=== PATIENT | female | born 1950 | race Caucasian/White ===

== ENCOUNTER 2023-04-01 14:04 | Inpatient (IN) | payer MEDICARE ==
[2023-04-01] MEDS ORDERED: Dexamethasone 10 MG/ML VIAL ONE (15:20)
[2023-04-01] MEDS ORDERED: Ipratropium/Albuterol 3 ML NEB ONE ×2 (15:27→17:49)
[2023-04-01] MEDS ORDERED: Albuterol 2.5 MG (3 mL) NEB ONE ×2 (15:27→17:49)
[2023-04-01 15:36] LABS: Bilirubin Neg (Negative); Blood, Urine 50 (Negative); Glucose, Urine (Dipstick) Normal (Negative); Ketone, Urine 5 mg/dL (Negative); Leukocyte 25 (Negative); Nitrite Negative (Negative); Protein, Urine (Dipstick) 500 mg/dl (Neg-Trace); Specific Gravity, Urine 1.015 (1.005-1.030)
[2023-04-01 15:38] LABS: ALT (SGPT) 20 U/L (8-55); AST (SGOT) 22 U/L (5-34); Albumin 3.9 g/dL (3.4-4.8); Alkaline Phosphatase 109 U/L (40-110); Anion Gap 17 mmol/L (10-20); BUN (Urea Nitrogen) 27 mg/dL (9.8-20.1); Bilirubin, Total 0.5 mg/dL (0.2-1.2); Calc. Creatinine Clearance 0 mL/min (70-130); Calcium 10.1 mg/dL (7.8-10.44); Carbon Dioxide 30 mmol/L (23-31); Chloride 99 mmol/L (98-107); Estimated GFR 53; Globulin 4.2 g/dL (2.4-3.5); Glucose 130 mg/dL (83-110); Potassium 2.9 mmol/L (3.5-5.1); Protein, Total 8.1 g/dL (5.8-8.1); Sodium 143 mmol/L (136-145)
[2023-04-01 15:41] LABS: Clarity Hazy (Clear)
[2023-04-01 15:45] LABS: CAUTI Indications for Culture Pelvic or flank pain
[2023-04-01 15:46] LABS: Bacteria/HPF 2+ HPF (None Seen)
[2023-04-01 15:47] LABS: Cellular Cast 0-3 LPF (None Seen); Red Blood Cell Cast 0-3 LPF (None Seen)
[2023-04-01 15:49] LABS: Mucous/LPF 3+ LPF (<2+)
[2023-04-01 15:50] LABS: Transitional Epithelial 0-3 HPF (None Seen)
[2023-04-01 15:52] LABS: Urine Culture Reflex No No
[2023-04-01 15:58] LABS: Hematocrit 50.3 % (34.9-44.5); Hemoglobin 16.7 g/dL (12.0-15.5); Mean Corpuscular HGB CONC 33.2 g/dL (32.0-36.0); Mean Corpuscular Hemoglobin 28.2 pg (27.0-33.0); Mean Platelet Volume 11.2 fl (7.4-10.4); Platelet Count 288 10x3/uL (150-450); RBC Distribution Width 14.2 % (11.5-14.5); Red Blood Cell (RBC) Count 5.92 10x6/uL (3.90-5.03); White Blood Cell (WBC) Count 16.6 10x3/uL (3.5-10.5)
[2023-04-01 16:10] LABS: SARS-CoV-2 NAA Rapid Test Not Detected (NotDetected)
[2023-04-01 16:16] LABS: Band 34 % (5-11)
[2023-04-01 16:18] LABS: MDiff Complete? YES; Platelet Adequacy Comment Appears Adequate; RBC Morph Comment Within Normal Limits
[2023-04-01 16:20] LABS: Lymphocytes 6 % (21-51); Monocytes 10 % (0-10)
[2023-04-01 16:21] LABS: Neutrophil 50 % (42-75)
[2023-04-01] MEDS ORDERED: cefTRIAXone (ROCEPHIN) 1 GM VIAL ONE (17:39)
[2023-04-01] MEDS ORDERED: Ondansetron PF 4 MG/2 ML Vial IVP PRN (17:44)
[2023-04-01] MEDS ORDERED: Ipratropium/Albuterol 3 ML NEB NEB PRN (17:44)
[2023-04-01] MEDS ORDERED: Loperamide HCl 2 MG CAP PO PRN (18:30)
[2023-04-01] MEDS ORDERED: Potassium Chloride 20 MEQ TAB PO SCH (23:00)
[2023-04-01] MEDS ORDERED: Azithromycin 500 MG in Sodium Chloride 0.9% 250 ML 250 ML IVPB SCH (23:00)
[2023-04-02] MEDS ORDERED: traZODone HCl 50 MG TAB PO SCH (00:45)
[2023-04-02] MEDS: NS 0.9% w/ 20 MEQ KCL 1,000 ML/1,000 ML BAG IV SCH ×2 (00:46→08:42)
[2023-04-02 04:18] LABS: Anion Gap 18 mmol/L (10-20); BUN (Urea Nitrogen) 32 mg/dL (9.8-20.1); Calc. Creatinine Clearance 57 mL/min (70-130); Calcium 9.9 mg/dL (7.8-10.44); Carbon Dioxide 28 mmol/L (23-31); Chloride 101 mmol/L (98-107); Estimated GFR 55; Glucose 139 mg/dL (83-110); Potassium 3.6 mmol/L (3.5-5.1); Sodium 143 mmol/L (136-145)
[2023-04-02 04:53] LABS: Hematocrit 47.8 % (34.9-44.5); Hemoglobin 15.6 g/dL (12.0-15.5); Mean Corpuscular HGB CONC 32.6 g/dL (32.0-36.0); Mean Corpuscular Hemoglobin 27.9 pg (27.0-33.0); Mean Corpuscular Volume 85.5 fl (81.6-98.3); Mean Platelet Volume 11.2 fl (7.4-10.4); Platelet Count 298 10x3/uL (150-450); RBC Distribution Width 14.6 % (11.5-14.5); Red Blood Cell (RBC) Count 5.59 10x6/uL (3.90-5.03); White Blood Cell (WBC) Count 18.2 10x3/uL (3.5-10.5)
[2023-04-02 04:58] LABS: Band 30 % (5-11); Lymphocytes 2 % (21-51); Metamyelocyte 6 % (0-0); Monocytes 8 % (0-10); Reactive Lymphocytes 1 % (0-10)
[2023-04-02 04:59] LABS: Neutrophil 53 % (42-75)
[2023-04-02 05:02] LABS: Platelet Adequacy Comment Appears Adequate
[2023-04-02 05:03] LABS: MDiff Complete? YES
[2023-04-02] MEDS: Acetaminophen 325 MG TAB PO PRN (05:36)
[2023-04-02] MEDS: Guaifenesin DM 100-10/5 ML UDCUP PO PRN ×2 (05:36→20:33)
[2023-04-02] MEDS ORDERED: Nitroglycerin 2% Ointment 1 INCH/1 GM Packet TOP SCH (06:00)
[2023-04-02] MEDS: Potassium Chloride 20 MEQ TAB PO SCH (08:50)
[2023-04-02] MEDS ORDERED: Famotidine 20 MG TAB PO SCH (09:00)
[2023-04-02] MEDS ORDERED: Enoxaparin 40 MG (0.4 mL) SYRINGE SC SCH (09:00)
[2023-04-02] MEDS ORDERED: Losartan 50 MG TAB PO SCH (10:00)
[2023-04-02] MEDS ORDERED: NIFEdipine XL 60 MG ER.TAB PO SCH (10:00)
[2023-04-02] MEDS ORDERED: Albuterol 2.5 MG (3 mL) NEB ONE ×3 (10:51→20:12)
[2023-04-02] MEDS: methylPREDNISolone Sod Succ 40 MG VIAL IVP SCH ×2 (12:37→17:31)
[2023-04-02] MEDS: Ipratropium/Albuterol 3 ML NEB NEB SCH ×3 (13:08→22:30)
[2023-04-02] MEDS ORDERED: Albuterol 2.5 MG (3 mL) NEB NEB SCH ×2 (16:00→20:30)
[2023-04-02] MEDS ORDERED: cefTRIAXone\\ROCEPHIN 1 GM in Sodium Chloride 0.9% 100 ML IVPB SCH ×2 (18:00→21:00)
[2023-04-02] MEDS ORDERED: Budesonide 0.5 MG/2 ML NEB NEB SCH (18:30)
[2023-04-02] MEDS ORDERED: Magnesium 2 GM/50 ML BAG (IN WATER) ONE (20:09)
[2023-04-02] MEDS ORDERED: methylPREDNISolone Sod Succ 40 MG VIAL IVP SCH (20:30)
[2023-04-02] MEDS: Rosuvastatin 10 MG TAB PO SCH (20:33)
[2023-04-02] MEDS: DULoxetine 30 MG CAP PO SCH (20:33)
[2023-04-02] MEDS: traZODone HCl 50 MG TAB PO SCH (20:33)
[2023-04-02] MEDS: Gabapentin 100 MG CAP PO SCH (20:34)
[2023-04-02 20:35] LABS: Actual Bicarbonate (HCO3v) 25.8 mEq/L (22-28); Analyzer IN Cardio CS ER; Base Excess 0.9 mEq/L (-2 - +2); Calcium, Ionized (venous) 1.12 mmol/L (1.16-1.32); Chloride (VBG) 107 mmol/L (98-106); Critical Notified By: CP.PH; Hematocrit-VBG 47 % (36.0-47.0); Potassium (VBG) 3.56 mmol/L (3.70-5.30); Puncture Site Other Site; RapidComm Collect By LAB.RB2; Sodium 146 mmol/L (133-146); pH (venous) 7.404 (7.32-7.43)
[2023-04-02] MEDS ORDERED: Doxycycline 100 MG CAP PO SCH (21:00)
[2023-04-02] MEDS ORDERED: Ipratropium Bromide 2.5 ml Neb NEB SCH (21:00)
[2023-04-02] MEDS ORDERED: Magnesium 2 GM/50 ML(in water) 2 GM in Premix 1 BAG IVPB SCH (21:00)
[2023-04-02] MEDS ORDERED: Furosemide 20 MG (2 mL) VIAL SLOW IVP SCH (21:00)
[2023-04-02 21:09] LABS: Critical Call Chem Troponin I NUR.TR7@2109; Troponin I 3.264 ng/mL (< 0.028)
[2023-04-02] MEDS ORDERED: Enoxaparin 80 MG (0.8 mL) SYRINGE SC SCH (21:15)
[2023-04-02] MEDS ORDERED: Metoprolol Tartrate 25 MG TAB PO SCH (22:00)
[2023-04-02] MEDS: guaiFENesin ER 600 MG TAB PO SCH (22:27)
[2023-04-02] MEDS: Enoxaparin 80 MG (0.8 mL) SYRINGE SC SCH (22:33)
[2023-04-02] MEDS: Doxycycline 100 MG in Sodium Chloride 0.9% 100 ML IVPB SCH (22:50)
[2023-04-03 00:39] LABS: Troponin I 3.957 ng/mL (< 0.028)
[2023-04-03] MEDS: Ipratropium/Albuterol 3 ML NEB NEB SCH ×6 (02:30→22:25)
[2023-04-03] MEDS: methylPREDNISolone Sod Succ 40 MG VIAL IVP SCH ×4 (03:29→21:28)
[2023-04-03 04:28] LABS: Troponin I 4.113 ng/mL (< 0.028)
[2023-04-03 04:49] LABS: Legionella Urinary Ag Negative (Negative); Strep pneumo Urine Ag POSITIVE (NEGATIVE)
[2023-04-03] MEDS ORDERED: Mometasone/Formoterol 200/5 60 PUFF INH SCH (06:30)
[2023-04-03] MEDS: Enoxaparin 80 MG (0.8 mL) SYRINGE SC SCH ×2 (08:18→21:29)
[2023-04-03] MEDS: Doxycycline 100 MG in Sodium Chloride 0.9% 100 ML IVPB SCH ×2 (08:19→21:45)
[2023-04-03] MEDS: Aspirin 81 mg Enteric Coated Tablet PO SCH (08:19)
[2023-04-03] MEDS: Potassium Chloride 20 MEQ TAB PO SCH (08:19)
[2023-04-03] MEDS: Losartan 50 MG TAB PO SCH (08:20)
[2023-04-03] MEDS: guaiFENesin ER 600 MG TAB PO SCH ×2 (08:20→21:30)
[2023-04-03] MEDS: Metoprolol Tartrate 25 MG TAB PO SCH ×2 (08:20→21:30)
[2023-04-03] MEDS: DULoxetine 30 MG CAP PO SCH ×2 (08:20→21:29)
[2023-04-03] MEDS ORDERED: Budesonide 0.5 MG/2 ML NEB NEB SCH (08:45)
[2023-04-03] MEDS: NIFEdipine XL 60 MG ER.TAB PO SCH (08:57)
[2023-04-03] MEDS: Budesonide 0.5 MG/2 ML NEB NEB SCH (18:50)
[2023-04-03] MEDS: cefTRIAXone\\ROCEPHIN 2 GM in Sodium Chloride 0.9% 100 ML IVPB SCH (21:29)
[2023-04-03] MEDS: Rosuvastatin 10 MG TAB PO SCH (21:30)
[2023-04-03] MEDS: traZODone HCl 50 MG TAB PO SCH (21:30)
[2023-04-03] MEDS: Gabapentin 100 MG CAP PO SCH (21:55)
[2023-04-04] MEDS: methylPREDNISolone Sod Succ 40 MG VIAL IVP SCH ×4 (01:32→20:22)
[2023-04-04] MEDS: Ipratropium/Albuterol 3 ML NEB NEB SCH ×6 (02:25→22:05)
[2023-04-04] MEDS: Budesonide 0.5 MG/2 ML NEB NEB SCH ×2 (07:20→18:34)
[2023-04-04 08:19] LABS: Anion Gap 17 mmol/L (10-20); BUN (Urea Nitrogen) 51 mg/dL (9.8-20.1); Calc. Creatinine Clearance 78 mL/min (70-130); Carbon Dioxide 24 mmol/L (23-31); Chloride 107 mmol/L (98-107); Estimated GFR 76; Glucose 149 mg/dL (83-110); Potassium 4.4 mmol/L (3.5-5.1); Sodium 144 mmol/L (136-145)
[2023-04-04 08:29] LABS: Hematocrit 43.6 % (34.9-44.5); Hemoglobin 14.7 g/dL (12.0-15.5); MDiff Complete? YES; Mean Corpuscular HGB CONC 33.7 g/dL (32.0-36.0); Mean Corpuscular Hemoglobin 29.3 pg (27.0-33.0); Mean Corpuscular Volume 86.9 fl (81.6-98.3); Mean Platelet Volume 11.5 fl (7.4-10.4); Platelet Count 283 10x3/uL (150-450); RBC Distribution Width 15.5 % (11.5-14.5); Red Blood Cell (RBC) Count 5.02 10x6/uL (3.90-5.03); White Blood Cell (WBC) Count 21.9 10x3/uL (3.5-10.5)
[2023-04-04 08:59] LABS: Lymphocytes 6 % (21-51); Metamyelocyte 1 % (0-0); Monocytes 2 % (0-10); Neutrophil 89 % (42-75); Reactive Lymphocytes 2 % (0-10)
[2023-04-04 09:01] LABS: RBC Morph Comment Within Normal Limits; Vacuoles SLIGHT
[2023-04-04 09:02] LABS: Hypersegmented Neutrophil SLIGHT; Large Platelets SLIGHT (None Seen); Platelet Adequacy Comment Appears Adequate
[2023-04-04] MEDS: Enoxaparin 80 MG (0.8 mL) SYRINGE SC SCH (09:54)
[2023-04-04] MEDS: guaiFENesin ER 600 MG TAB PO SCH ×2 (09:55→20:22)
[2023-04-04] MEDS: DULoxetine 30 MG CAP PO SCH ×2 (09:55→20:22)
[2023-04-04] MEDS: Potassium Chloride 20 MEQ TAB PO SCH (09:56)
[2023-04-04] MEDS: Aspirin 81 mg Enteric Coated Tablet PO SCH (09:56)
[2023-04-04] MEDS: Losartan 50 MG TAB PO SCH (10:00)
[2023-04-04] MEDS: Metoprolol Tartrate 25 MG TAB PO SCH ×2 (10:01→20:22)
[2023-04-04] MEDS: NIFEdipine XL 60 MG ER.TAB PO SCH (10:02)
[2023-04-04] MEDS: Doxycycline 100 MG in Sodium Chloride 0.9% 100 ML IVPB SCH ×2 (10:03→20:23)
[2023-04-04] MEDS: Acetaminophen 325 MG TAB PO PRN (11:11)
[2023-04-04] MEDS ORDERED: Clopidogrel Bisulfate 300 MG TAB PO SCH (14:30)
[2023-04-04] MEDS ORDERED: Enoxaparin 40 MG (0.4 mL) SYRINGE SC SCH (14:45)
[2023-04-04] MEDS: Gabapentin 100 MG CAP PO SCH (20:21)
[2023-04-04] MEDS: Enoxaparin 40 MG (0.4 mL) SYRINGE SC SCH (20:22)
[2023-04-04] MEDS: Rosuvastatin 10 MG TAB PO SCH (20:22)
[2023-04-04] MEDS: traZODone HCl 50 MG TAB PO SCH (20:22)
[2023-04-04] MEDS: cefTRIAXone\\ROCEPHIN 2 GM in Sodium Chloride 0.9% 100 ML IVPB SCH (20:23)
[2023-04-05] MEDS: methylPREDNISolone Sod Succ 40 MG VIAL IVP SCH ×4 (02:28→20:29)
[2023-04-05] MEDS: Ipratropium/Albuterol 3 ML NEB NEB SCH ×6 (02:53→21:34)
[2023-04-05 04:43] LABS: Hematocrit 43.5 % (34.9-44.5); Hemoglobin 14.2 g/dL (12.0-15.5); Mean Corpuscular HGB CONC 32.6 g/dL (32.0-36.0); Mean Corpuscular Hemoglobin 28.7 pg (27.0-33.0); Mean Corpuscular Volume 88.1 fl (81.6-98.3); Mean Platelet Volume 11.8 fl (7.4-10.4); Platelet Count 291 10x3/uL (150-450); RBC Distribution Width 15.7 % (11.5-14.5); Red Blood Cell (RBC) Count 4.94 10x6/uL (3.90-5.03); White Blood Cell (WBC) Count 14.2 10x3/uL (3.5-10.5)
[2023-04-05 04:48] LABS: Anion Gap 15 mmol/L (10-20); BUN (Urea Nitrogen) 43 mg/dL (9.8-20.1); Calc. Creatinine Clearance 80 mL/min (70-130); Calcium 8.9 mg/dL (7.8-10.44); Carbon Dioxide 25 mmol/L (23-31); Chloride 106 mmol/L (98-107); Estimated GFR 78; Glucose 157 mg/dL (83-110); Potassium 4.4 mmol/L (3.5-5.1); Sodium 142 mmol/L (136-145)
[2023-04-05 05:00] LABS: Lymphocytes 7 % (21-51); Monocytes 3 % (0-10); Myelocyte 3 % (0-0)
[2023-04-05 05:01] LABS: Neutrophil 87 % (42-75)
[2023-04-05 05:02] LABS: MDiff Complete? YES; Platelet Adequacy Comment Appears Adequate; Target Cells SLIGHT = 2-5 cells (100X) (0-1/hpf)
[2023-04-05] MEDS: Budesonide 0.5 MG/2 ML NEB NEB SCH ×2 (07:32→07:33)
[2023-04-05] MEDS: Doxycycline 100 MG in Sodium Chloride 0.9% 100 ML IVPB SCH ×2 (08:30→20:29)
[2023-04-05] MEDS: NIFEdipine XL 60 MG ER.TAB PO SCH (08:31)
[2023-04-05] MEDS: Clopidogrel Bisulfate 75 MG TAB PO SCH (08:31)
[2023-04-05] MEDS: DULoxetine 30 MG CAP PO SCH ×2 (08:31→20:30)
[2023-04-05] MEDS: guaiFENesin ER 600 MG TAB PO SCH ×2 (08:31→20:30)
[2023-04-05] MEDS: Losartan 50 MG TAB PO SCH (08:32)
[2023-04-05] MEDS: Potassium Chloride 20 MEQ TAB PO SCH (08:32)
[2023-04-05] MEDS: Aspirin 81 mg Enteric Coated Tablet PO SCH (08:32)
[2023-04-05] MEDS: Metoprolol Tartrate 25 MG TAB PO SCH ×2 (08:32→20:30)
[2023-04-05] MEDS: Gabapentin 100 MG CAP PO SCH (20:29)
[2023-04-05] MEDS: cefTRIAXone\\ROCEPHIN 2 GM in Sodium Chloride 0.9% 100 ML IVPB SCH (20:29)
[2023-04-05] MEDS: traZODone HCl 50 MG TAB PO SCH (20:30)
[2023-04-05] MEDS: Enoxaparin 40 MG (0.4 mL) SYRINGE SC SCH (20:30)
[2023-04-05] MEDS: Rosuvastatin 10 MG TAB PO SCH (20:30)
[2023-04-06] MEDS: Ipratropium/Albuterol 3 ML NEB NEB SCH ×6 (02:51→23:30)
[2023-04-06] MEDS: methylPREDNISolone Sod Succ 40 MG VIAL IVP SCH ×2 (03:45→08:32)
[2023-04-06 04:25] LABS: Hematocrit 42.8 % (34.9-44.5); Hemoglobin 13.8 g/dL (12.0-15.5); Mean Corpuscular HGB CONC 32.2 g/dL (32.0-36.0); Mean Corpuscular Volume 86.8 fl (81.6-98.3); Mean Platelet Volume 11.3 fl (7.4-10.4); Platelet Count 290 10x3/uL (150-450); RBC Distribution Width 15.4 % (11.5-14.5); Red Blood Cell (RBC) Count 4.93 10x6/uL (3.90-5.03); White Blood Cell (WBC) Count 11.4 10x3/uL (3.5-10.5)
[2023-04-06 04:48] LABS: Band 1 % (5-11); Lymphocytes 15 % (21-51); Monocytes 6 % (0-10); Myelocyte 2 % (0-0); Neutrophil 76 % (42-75)
[2023-04-06 04:49] LABS: Anion Gap 15 mmol/L (10-20); BUN (Urea Nitrogen) 35 mg/dL (9.8-20.1); Calc. Creatinine Clearance 78 mL/min (70-130); Calcium 8.8 mg/dL (7.8-10.44); Carbon Dioxide 27 mmol/L (23-31); Chloride 105 mmol/L (98-107); Cholesterol 124 mg/dl (< 200 Desired); Estimated GFR 76; Glucose 144 mg/dL (83-110); HDL Cholesterol 31 mg/dL (>60 Neg Risk); LDL Cholesterol, Calculated 71 mg/dL; Potassium 4.9 mmol/L (3.5-5.1); Sodium 142 mmol/L (136-145); Triglycerides 112 mg/dL (Less than 150)
[2023-04-06 04:50] LABS: Platelet Adequacy Comment Appears Adequate; RBC Morph Comment Within Normal Limits
[2023-04-06 04:52] LABS: MDiff Complete? YES
[2023-04-06] MEDS: Budesonide 0.5 MG/2 ML NEB NEB SCH ×2 (07:28→19:10)
[2023-04-06] MEDS: Clopidogrel Bisulfate 75 MG TAB PO SCH (08:32)
[2023-04-06] MEDS: NIFEdipine XL 60 MG ER.TAB PO SCH (08:32)
[2023-04-06] MEDS: Aspirin 81 mg Enteric Coated Tablet PO SCH (08:33)
[2023-04-06] MEDS: DULoxetine 30 MG CAP PO SCH ×2 (08:33→20:14)
[2023-04-06] MEDS: Losartan 50 MG TAB PO SCH (08:33)
[2023-04-06] MEDS: guaiFENesin ER 600 MG TAB PO SCH ×2 (08:33→20:13)
[2023-04-06] MEDS: Potassium Chloride 20 MEQ TAB PO SCH (08:33)
[2023-04-06] MEDS: Metoprolol Tartrate 25 MG TAB PO SCH ×2 (08:33→20:14)
[2023-04-06] MEDS: Doxycycline 100 MG in Sodium Chloride 0.9% 100 ML IVPB SCH ×2 (08:33→20:13)
[2023-04-06] MEDS ORDERED: Furosemide 40 MG (4 mL) VIAL SLOW IVP SCH (10:15)
[2023-04-06] MEDS ORDERED: predniSONE 20 MG TAB PO SCH (10:15)
[2023-04-06] MEDS: cefTRIAXone\\ROCEPHIN 2 GM in Sodium Chloride 0.9% 100 ML IVPB SCH (20:13)
[2023-04-06] MEDS: Gabapentin 100 MG CAP PO SCH (20:14)
[2023-04-06] MEDS: Rosuvastatin 10 MG TAB PO SCH (20:14)
[2023-04-06] MEDS: traZODone HCl 50 MG TAB PO SCH (20:14)
[2023-04-06] MEDS: Enoxaparin 40 MG (0.4 mL) SYRINGE SC SCH (21:02)
[2023-04-07] MEDS: Ipratropium/Albuterol 3 ML NEB NEB SCH ×6 (03:25→22:32)
[2023-04-07 04:45] LABS: Anion Gap 19 mmol/L (10-20); BUN (Urea Nitrogen) 32 mg/dL (9.8-20.1); Calc. Creatinine Clearance 75 mL/min (70-130); Calcium 8.6 mg/dL (7.8-10.44); Carbon Dioxide 24 mmol/L (23-31); Chloride 105 mmol/L (98-107); Estimated GFR 73; Glucose 110 mg/dL (83-110); Potassium 4.8 mmol/L (3.5-5.1); Sodium 143 mmol/L (136-145)
[2023-04-07 04:54] LABS: Hematocrit 44.2 % (34.9-44.5); Hemoglobin 14.4 g/dL (12.0-15.5); Mean Corpuscular HGB CONC 32.6 g/dL (32.0-36.0); Mean Corpuscular Hemoglobin 27.9 pg (27.0-33.0); Mean Corpuscular Volume 85.7 fl (81.6-98.3); Mean Platelet Volume 10.9 fl (7.4-10.4); Platelet Count 280 10x3/uL (150-450); RBC Distribution Width 15.2 % (11.5-14.5); Red Blood Cell (RBC) Count 5.16 10x6/uL (3.90-5.03)
[2023-04-07] MEDS: Budesonide 0.5 MG/2 ML NEB NEB SCH ×2 (07:16→18:46)
[2023-04-07 07:21] LABS: Band 2 % (5-11); Lymphocytes 18 % (21-51); Monocytes 6 % (0-10); Reactive Lymphocytes 4 % (0-10)
[2023-04-07 07:22] LABS: MDiff Complete? YES; Neutrophil 70 % (42-75)
[2023-04-07 07:23] LABS: Platelet Adequacy Comment Appears Adequate; RBC Morph Comment Within Normal Limits; Vacuoles SLIGHT
[2023-04-07] MEDS: Metoprolol Tartrate 25 MG TAB PO SCH ×2 (08:32→20:31)
[2023-04-07] MEDS: Aspirin 81 mg Enteric Coated Tablet PO SCH (08:32)
[2023-04-07] MEDS: Potassium Chloride 20 MEQ TAB PO SCH (08:32)
[2023-04-07] MEDS: predniSONE 20 MG TAB PO SCH (08:32)
[2023-04-07] MEDS: guaiFENesin ER 600 MG TAB PO SCH ×2 (08:33→20:31)
[2023-04-07] MEDS: Losartan 50 MG TAB PO SCH (08:33)
[2023-04-07] MEDS: DULoxetine 30 MG CAP PO SCH ×2 (08:33→20:31)
[2023-04-07] MEDS: Clopidogrel Bisulfate 75 MG TAB PO SCH (08:33)
[2023-04-07] MEDS: NIFEdipine XL 60 MG ER.TAB PO SCH (08:36)
[2023-04-07] MEDS: Doxycycline 100 MG in Sodium Chloride 0.9% 100 ML IVPB SCH ×2 (09:32→20:30)
[2023-04-07] MEDS ORDERED: Communication Order-Pharmacy FS SCH (17:15)
[2023-04-07] MEDS: cefTRIAXone\\ROCEPHIN 2 GM in Sodium Chloride 0.9% 100 ML IVPB SCH (20:30)
[2023-04-07] MEDS: Enoxaparin 40 MG (0.4 mL) SYRINGE SC SCH (20:31)
[2023-04-07] MEDS: Rosuvastatin 10 MG TAB PO SCH (20:31)
[2023-04-07] MEDS: Gabapentin 100 MG CAP PO SCH (20:31)
[2023-04-07] MEDS: traZODone HCl 50 MG TAB PO SCH (20:31)
[2023-04-08] MEDS: Ipratropium/Albuterol 3 ML NEB NEB SCH ×6 (02:31→22:30)
[2023-04-08 04:17] LABS: Anion Gap 14 mmol/L (10-20); BUN (Urea Nitrogen) 30 mg/dL (9.8-20.1); Calc. Creatinine Clearance 75 mL/min (70-130); Calcium 8.4 mg/dL (7.8-10.44); Carbon Dioxide 28 mmol/L (23-31); Chloride 103 mmol/L (98-107); Estimated GFR 73; Glucose 102 mg/dL (83-110); Potassium 4.4 mmol/L (3.5-5.1); Sodium 141 mmol/L (136-145)
[2023-04-08 04:42] LABS: Critical Call Chem Troponin I NUR.JP14 @ 0442; Troponin I 0.637 ng/mL (< 0.028)
[2023-04-08] MEDS: Budesonide 0.5 MG/2 ML NEB NEB SCH ×2 (06:54→18:59)
[2023-04-08] MEDS: Aspirin 81 mg Enteric Coated Tablet PO SCH (08:40)
[2023-04-08] MEDS: NIFEdipine XL 60 MG ER.TAB PO SCH (08:40)
[2023-04-08] MEDS: predniSONE 20 MG TAB PO SCH (08:40)
[2023-04-08] MEDS: Clopidogrel Bisulfate 75 MG TAB PO SCH (08:40)
[2023-04-08] MEDS: Potassium Chloride 20 MEQ TAB PO SCH (08:41)
[2023-04-08] MEDS: Metoprolol Tartrate 25 MG TAB PO SCH ×2 (08:41→21:12)
[2023-04-08] MEDS: guaiFENesin ER 600 MG TAB PO SCH ×2 (08:41→21:12)
[2023-04-08] MEDS: Losartan 50 MG TAB PO SCH (08:41)
[2023-04-08] MEDS: DULoxetine 30 MG CAP PO SCH ×2 (08:42→21:11)
[2023-04-08] MEDS: Doxycycline 100 MG in Sodium Chloride 0.9% 100 ML IVPB SCH ×2 (08:45→21:13)
[2023-04-08] MEDS ORDERED: Polyethylene Glycol 3350 17 GM Packet PO PRN (08:48)
[2023-04-08] MEDS ORDERED: Senokot S 8.6-50 MG TAB PO SCH (09:00)
[2023-04-08] MEDS: Sodium Chloride 0.9% 1,000 ML IV SCH (09:48)
[2023-04-08] MEDS ORDERED: Iopamidol 300 61% 100 ML VIAL FS ONE (09:49)
[2023-04-08 11:12] VITALS: BMI 29.7
[2023-04-08] MEDS ORDERED: Lidocaine 1% (PF) 30 ML VIAL ONE (11:17)
[2023-04-08] MEDS ORDERED: Nitroglycerin 50 MG/250 ML BOT 0 ML ONE (11:17)
[2023-04-08] MEDS ORDERED: Heparin 10,000 UNITS/ 10 ML VIAL ONE (11:17)
[2023-04-08] MEDS ORDERED: Atropine Sulfate 1 mg/1 ml Vial ONE (11:18)
[2023-04-08] MEDS ORDERED: Adenosine 6 mg (2 mL) VIAL ONE (11:18)
[2023-04-08] MEDS ORDERED: Midazolam HCl 2 mg/2 ml Vial ONE (12:34)
[2023-04-08] MEDS ORDERED: fentaNYL 50 mcg/mL 1 mL Vial ONE (12:34)
[2023-04-08] MEDS ORDERED: Furosemide 40 MG (4 mL) VIAL ONE (12:35)
[2023-04-08] MEDS: Gabapentin 100 MG CAP PO SCH (21:11)
[2023-04-08] MEDS: Rosuvastatin 10 MG TAB PO SCH (21:12)
[2023-04-08] MEDS: traZODone HCl 50 MG TAB PO SCH (21:12)
[2023-04-08] MEDS: Senokot S 8.6-50 MG TAB PO SCH (21:12)
[2023-04-08] MEDS: cefTRIAXone\\ROCEPHIN 2 GM in Sodium Chloride 0.9% 100 ML IVPB SCH (21:12)
[2023-04-09] MEDS: Ipratropium/Albuterol 3 ML NEB NEB SCH ×3 (02:30→10:40)
[2023-04-09 03:40] LABS: #Eosinphils 0.1 10x3/uL (0.0-0.5); #Monocytes 0.7 10x3/uL (0.0-1.1); #Neutrophils 5.5 10x3/uL (1.5-8.4); %Basophils 0.3 % (0.0-2.0); %Eosinophils 0.9 % (0.0-6.0); %Lymphocytes 29.8 % (18.0-47.0); %Monocytes 7.6 % (0.0-10.0); Hematocrit 42.1 % (34.9-44.5); Hemoglobin 14.4 g/dL (12.0-15.5); Mean Corpuscular HGB CONC 34.2 g/dL (32.0-36.0); Mean Corpuscular Hemoglobin 29.4 pg (27.0-33.0); Mean Corpuscular Volume 86.1 fl (81.6-98.3); Mean Platelet Volume 11.5 fl (7.4-10.4); Platelet Count 234 10x3/uL (150-450); Red Blood Cell (RBC) Count 4.89 10x6/uL (3.90-5.03); White Blood Cell (WBC) Count 9.3 10x3/uL (3.5-10.5)
[2023-04-09 04:21] LABS: Anion Gap 14 mmol/L (10-20); BUN (Urea Nitrogen) 30 mg/dL (9.8-20.1); Calc. Creatinine Clearance 81 mL/min (70-130); Calcium 8.1 mg/dL (7.8-10.44); Carbon Dioxide 26 mmol/L (23-31); Chloride 104 mmol/L (98-107); Estimated GFR 80; Glucose 99 mg/dL (83-110); Potassium 4.2 mmol/L (3.5-5.1); Sodium 140 mmol/L (136-145)
[2023-04-09 04:41] LABS: Critical Call Chem Troponin I NUR.JP14 @ 0440; Troponin I 0.503 ng/mL (< 0.028)
[2023-04-09] MEDS: Budesonide 0.5 MG/2 ML NEB NEB SCH (07:20)
[2023-04-09] MEDS: Clopidogrel Bisulfate 75 MG TAB PO SCH (10:14)
[2023-04-09] MEDS: Sodium Chloride 0.9% 1,000 ML IV SCH (10:14)
[2023-04-09] MEDS: Aspirin 81 mg Enteric Coated Tablet PO SCH (10:14)
[2023-04-09] MEDS: DULoxetine 30 MG CAP PO SCH (10:14)
[2023-04-09] MEDS: guaiFENesin ER 600 MG TAB PO SCH (10:14)
[2023-04-09] MEDS: predniSONE 20 MG TAB PO SCH (10:14)
[2023-04-09] MEDS: Potassium Chloride 20 MEQ TAB PO SCH (10:14)
[2023-04-09] MEDS: Losartan 50 MG TAB PO SCH (10:15)
[2023-04-09] MEDS: Metoprolol Tartrate 25 MG TAB PO SCH (10:15)
[2023-04-09] MEDS: NIFEdipine XL 60 MG ER.TAB PO SCH (10:15)
[2023-04-09] MEDS: Senokot S 8.6-50 MG TAB PO SCH (10:16)
[2023-04-09 12:32] VITALS: BP 98/58; TEMP 98.2
== END 2023-04-09 14:07 | disposition home or self-care (01) | DRG 193 ==
LOC: CSHERS 14:04 → CSHTELE 20:05 → CSHICU 04-02 21:10 → CSHTELE 04-08
PROVIDERS: ADMIT Student in an Organized Health Care Education/Training Program; ATTEND Internal Medicine
PROC: 5A09457 Assistance with Respiratory Ventilation, 24-96 Consecutive Hours, Continuous Positive Airway Pressure (ICD-10-PCS; 2023-04-02)
PROC: 4A023N7 Measurement of Cardiac Sampling and Pressure, Left Heart, Percutaneous Approach (ICD-10-PCS; principal; 2023-04-08)
PROC: B2111ZZ Fluoroscopy of Multiple Coronary Arteries using Low Osmolar Contrast (ICD-10-PCS; 2023-04-08)
PROC: B2151ZZ Fluoroscopy of Left Heart using Low Osmolar Contrast (ICD-10-PCS; 2023-04-08)
DX: J18.9 Pneumonia, unspecified organism (principal); I21.4 Non-ST elevation (NSTEMI) myocardial infarction; J96.01 Acute respiratory failure with hypoxia; J44.1 Chronic obstructive pulmonary disease with (acute) exacerbation; N30.00 Acute cystitis without hematuria; I51.81 Takotsubo syndrome; J44.0 Chronic obstructive pulmonary disease with (acute) lower respiratory infection; I10 Essential (primary) hypertension; M19.90 Unspecified osteoarthritis, unspecified site; E87.6 Hypokalemia; E86.0 Dehydration; F17.210 Nicotine dependence, cigarettes, uncomplicated; M79.7 Fibromyalgia; I25.10 Atherosclerotic heart disease of native coronary artery without angina pectoris; Z11.52 Encounter for screening for COVID-19; Z88.2 Allergy status to sulfonamides; Z79.899 Other long term (current) drug therapy; Z90.49 Acquired absence of other specified parts of digestive tract; Z90.710 Acquired absence of both cervix and uterus
CPT/HCPCS: 36415; 71045; 80048; 80053; 80061; 81001; 82805; 83880; 84484; 85025; 85379; 87070; 87205; 87449; 87899; 93005; 93010; 93306; 93458; 94640; 94660; 94760; 94762; 96374; 96375; 99152; 99153; C1760; C1769; J0153; J0456; J0461; J0696; J1100; J1644; J1650; J1940; J2001; J2250; J2920; J3010; J3475; J3480; J3490; J7050; J7512; J7611; J7620; J7626; Q9967